=== PATIENT | female | born 1985 | race Caucasian/White ===

== ENCOUNTER 2023-02-24 12:30 | Emergency (ER) | payer OTHER ==
[~2023-02-24] VITALS: Ht 157.5 cm; Wt 80.7 kg
[2023-02-24 13:22] VITALS: BP 123/74; PULSE 89; RESP 20; TEMP 98.5; O2SAT 98
[2023-02-24 13:44] LABS: BASOPHILS % (AUTO) 0.3 % (0.0-2.0); EOSINOPHILS % (AUTO) 0.3 % (0.0-4.0); HEMATOCRIT 34.3 % (36-48); HEMOGLOBIN 11.9 g/dL (12.0-16.0); LYMPHOCYTES # (AUTO) 1.1 K/uL (2.5-16.5); LYMPHOCYTES % (AUTO) 14.4 % (20.5-51.1); MEAN CORPUSCULAR HEMOGLOBIN 29 pg (27-31); MEAN CORPUSCULAR HGB CONC 35 g/dL (33-37); MEAN CORPUSCULAR VOLUME 84.6 fL (80-94); MONOCYTES # (AUTO) 0.4 K/uL (0.8-1.0); MONOCYTES % (AUTO) 5.1 % (1.7-9.3); NEUTROPHILS # (AUTO) 6.3 K/uL (1.8-7.7); NEUTROPHILS % (AUTO) 79.9 % (42.2-75.2); PLATELET COUNT (AUTO) 253 K/uL (140-450); RED BLOOD CELL COUNT(AUTO) 4.06 MIL/uL (4.20-5.40); RED CELL DISTRIBUTION WIDTH 14.7 % (11.6-13.7); WHITE BLOOD COUNT (AUTO) 7.9 K/uL (4.8-10.8)
[2023-02-24 13:52] LABS: ANION GAP 16.2 (8-16); CALCIUM 9.5 mg/dL (8.5-10.1); CARBON DIOXIDE 22.7 mmol/L (21-32); CREATININE 0.6 mg/dL (0.6-1.3); POTASSIUM 3.9 mmol/L (3.5-5.1)
[2023-02-24 15:33] VITALS: BP 123/74; PULSE 89; RESP 20; TEMP 98.5; O2SAT 98
== END 2023-02-24 15:34 | disposition home or self-care (01) ==
LOC: MED 12:30
DX: O26.813 Pregnancy related exhaustion and fatigue, third trimester (principal); R42 Dizziness and giddiness; O99.513 Diseases of the respiratory system complicating pregnancy, third trimester; R06.02 Shortness of breath; O99.353 Diseases of the nervous system complicating pregnancy, third trimester; R51.9 Headache, unspecified; Z3A.34 34 weeks gestation of pregnancy
CPT/HCPCS: 36415; 80048; 81002; 83880; 84484; 85025; 93005; 99284

== ENCOUNTER 2023-03-29 20:41 | Inpatient (IN) | payer OTHER ==
[~2023-03-29] VITALS: Ht 154.9 cm; Wt 83.5 kg
[2023-03-29 21:20] VITALS: BP 131/75; PULSE 18; RESP 18; TEMP 98.5
[2023-03-29] MEDS ORDERED: LACTATED RINGERS 500 ML IV ONE (21:55)
[2023-03-29] MEDS ORDERED: OXYTOCIN 10 UNITS/ML VIAL IM SCH (21:55)
[2023-03-29] MEDS ORDERED: METHYLERGONOVINE 0.2 MG/ML AMP IM PRN (21:55)
[2023-03-29] MEDS ORDERED: MORPHINE SULFATE 10 MG/ML VIAL IVP PRN (22:15)
[2023-03-29 22:30] LABS: BASOPHILS % (AUTO) 0.4 % (0.0-2.0); EOSINOPHILS % (AUTO) 0.3 % (0.0-4.0); HEMATOCRIT 36.3 % (36-48); HEMOGLOBIN 12.6 g/dL (12.0-16.0); LYMPHOCYTES # (AUTO) 1.4 K/uL (2.5-16.5); LYMPHOCYTES % (AUTO) 17.4 % (20.5-51.1); MEAN CORPUSCULAR HEMOGLOBIN 30 pg (27-31); MEAN CORPUSCULAR HGB CONC 35 g/dL (33-37); MEAN CORPUSCULAR VOLUME 86.6 fL (80-94); MONOCYTES # (AUTO) 0.4 K/uL (0.8-1.0); MONOCYTES % (AUTO) 5.3 % (1.7-9.3); NEUTROPHILS # (AUTO) 6.1 K/uL (1.8-7.7); NEUTROPHILS % (AUTO) 76.6 % (42.2-75.2); PLATELET COUNT (AUTO) 190 K/uL (140-450); RED BLOOD CELL COUNT(AUTO) 4.19 MIL/uL (4.20-5.40); RED CELL DISTRIBUTION WIDTH 16.5 % (11.6-13.7)
[2023-03-29 22:31] LABS: APPEARANCE,URINE CLEAR (CLEAR); BILIRUBIN,URINE NEGATIVE (NEGATIVE); BLOOD, URINE NEGATIVE (NEGATIVE); COLOR,URINE YELLOW (YELLOW); LEUKOCYTE ESTERASE ,URINE NEGATIVE (NEGATIVE); NITRITE, URINE NEGATIVE (NEGATIVE); PH,URINE 6.5 (5.0-9.0); PROTEIN,URINE NEGATIVE (NEGATIVE); UGLUCOSE NEGATIVE (NEGATIVE); UROBILINOGEN,URINE 0.2 EU/dL (0.2 - 1)
[2023-03-29] MEDS ORDERED: ROPIVACAINE 0.2%/NS PREMIX 200 ML EPI ONE (23:16)
[2023-03-29] MEDS: LACTATED RINGERS 1,000 ML IV SCH (23:43)
[2023-03-29 23:52] LABS: ALBUMIN 2.3 g/dL (3.4-5.0); ANION GAP 17.4 (8-16); CALCIUM 9.7 mg/dL (8.5-10.1); CARBON DIOXIDE 20.2 mmol/L (21-32); CREATININE 0.8 mg/dL (0.6-1.3); POTASSIUM 3.6 mmol/L (3.5-5.1); TOTAL BILIRUBIN 0.4 mg/dL (0.0-1.0); TOTAL PROTEIN, SERUM 6.6 g/dL (6.4-8.2)
[2023-03-30] MEDS ORDERED: AMPICILLIN 2,000 MG VIAL ONE (00:03)
[2023-03-30] MEDS ORDERED: PANTOPRAZOLE 40 MG TABEC PO ONE (00:13)
[2023-03-30] MEDS: AMPICILLIN 2,000 MG in NACL 0.9% MINI-BAG PLUS 100 ML IV SCH (00:15)
[2023-03-30] MEDS: PANTOPRAZOLE 40 MG TABEC PO ONE (00:19)
[2023-03-30] MEDS ORDERED: PREN-543 PO (02:07)
[2023-03-30] MEDS ORDERED: CALCIUM (02:07)
[2023-03-30] MEDS ORDERED: MAGNESIUM OXIDE (02:07)
[2023-03-30] MEDS ORDERED: VITAMIN D (02:07)
[2023-03-30] MEDS ORDERED: ASPI-1856 PO (02:07)
[2023-03-30] MEDS ORDERED: AMPICILLIN 1,000 MG VIAL ONE ×3 (04:08→11:47)
[2023-03-30] MEDS: AMPICILLIN 1,000 MG in NACL 0.9% MINI-BAG PLUS 50 ML IV SCH (04:15)
[2023-03-30] MEDS: ONDANSETRON 4 MG/2 ML VIAL IVP PRN (07:40)
[2023-03-30] MEDS ORDERED: OXYTOCIN 20 UNITS/LR PREMIX 1,000 ML IV ONE (11:00)
[2023-03-30] MEDS: OXYTOCIN 20 UNITS in LACTATED RINGERS 1,000 ML IV SCH (11:21)
[2023-03-30] MEDS ORDERED: OXYTOCIN 10 UNITS/ML VIAL IM PRN (13:40)
[2023-03-30] MEDS ORDERED: METHYLERGONOVINE 0.2 MG/ML AMP IM PRN (13:40)
[2023-03-30] MEDS ORDERED: METHYLERGONOVINE 0.2 MG TAB PO PRN (13:40)
[2023-03-30] MEDS ORDERED: BENZOCAINE/MENTHOL 20%-0.5% 60 GM CAN TP PRN (13:40)
[2023-03-30] MEDS ORDERED: MEASLES, MUMPS, AND RUBELLA 1 VIAL SQVAC ONE (13:40)
[2023-03-30] MEDS ORDERED: MEASLES, MUMPS, AND RUBELLA 1 VIAL SQVAC PRN (13:45)
[2023-03-30] MEDS: IBUPROFEN 800 MG TAB PO PRN (14:18)
[2023-03-31 08:25] LABS: HEMATOCRIT 31.2 % (36-48); HEMOGLOBIN 10.6 g/dL (12.0-16.0)
== END 2023-04-01 13:50 | disposition home or self-care (01) | DRG 560 ==
LOC: OBSVTOIN 20:41 → MLD 20:41 → MFCC 03-30 14:05
PROVIDERS: ADMIT Obstetrics & Gynecology; ATTEND Obstetrics & Gynecology
PROC: 10E0XZZ Delivery of Products of Conception, External Approach (ICD-10-PCS; principal; 2023-03-30)
PROC: 3E0R3BZ Introduction of Anesthetic Agent into Spinal Canal, Percutaneous Approach (ICD-10-PCS; 2023-03-30)
PROC: 00HU33Z Insertion of Infusion Device into Spinal Canal, Percutaneous Approach (ICD-10-PCS; 2023-03-30)
DX: O99.824 Streptococcus B carrier state complicating childbirth (principal); Z37.0 Single live birth; Z20.822 Contact with and (suspected) exposure to COVID-19; Z3A.39 39 weeks gestation of pregnancy
CPT/HCPCS: 36415; 51702; 59409; 80053; 81003; 85018; 85025; 86592; 86886; 86900; 86901; J0290; J2405; J2590; J2795; J7120